=== PATIENT | female | born 1970 | race Caucasian/White ===

== ENCOUNTER 2023-12-26 08:00 | Outpatient (RCR) | payer BC, SELFPAY | END 2023-12-26 08:52 | disposition home or self-care (01) | PROVIDERS: PCP Student in an Organized Health Care Education/Training Program; Visit Provider Surgery | DX: G57.02 Lesion of sciatic nerve, left lower limb (principal); Z74.09 Other reduced mobility; M62.81 Muscle weakness (generalized); M25.552 Pain in left hip; Z51.89 Encounter for other specified aftercare | CPT/HCPCS: 97110; 97112; 97140; 97161 ==